=== PATIENT | female | born 2000 ===

== ENCOUNTER 2021-02-02 09:04 | Outpatient (CLI) | payer OTHER | END 2021-02-02 10:08 | disposition home or self-care (01) | LOC: PRENATAL 09:04 | PROVIDERS: ATTEND Obstetrics & Gynecology Maternal & Fetal Medicine | DX: O35.0XX1 Maternal care for (suspected) central nervous system malformation in fetus, fetus 1 (principal); O35.3XX1 Maternal care for (suspected) damage to fetus from viral disease in mother, fetus 1; O98.512 Other viral diseases complicating pregnancy, second trimester; Z36.89 Encounter for other specified antenatal screening; Z3A.25 25 weeks gestation of pregnancy ==

== ENCOUNTER 2021-03-29 12:44 | Inpatient (IN) | payer OTHER ==
[~2021-03-29] VITALS: Ht 160 cm; Wt 2.3 kg
[2021-04-01] MEDS ORDERED: FUSION PLUS CA1 EACH PO (13:41)
[2021-04-01] MEDS ORDERED: IBU800 MG PO (13:41)
[2021-04-01] MEDS ORDERED: SURFAK240 M1 PO (13:41)
== END 2021-04-01 14:07 | disposition home or self-care (01) | DRG 788 ==
LOC: LDR 12:44 → OB/GYN 20:37
PROVIDERS: ADMIT Obstetrics & Gynecology; ATTEND Obstetrics & Gynecology
PROC: BY4FZZZ Ultrasonography of Third Trimester, Single Fetus (ICD-10-PCS; 2021-03-29)
PROC: 4A1HXCZ Monitoring of Products of Conception, Cardiac Rate, External Approach (ICD-10-PCS; 2021-03-29)
PROC: 10D00Z1 Extraction of Products of Conception, Low, Open Approach (ICD-10-PCS; principal; 2021-03-29 18:30)
DX: O64.1XX0 Obstructed labor due to breech presentation, not applicable or unspecified (principal); O99.824 Streptococcus B carrier state complicating childbirth; O82 Encounter for cesarean delivery without indication; Z3A.35 35 weeks gestation of pregnancy; Z37.0 Single live birth; Z20.822 Contact with and (suspected) exposure to COVID-19

== ENCOUNTER 2021-04-05 09:00 | Outpatient (CLI) | payer OTHER ==
[~2021-04-05 09:00] MED LIST: FUSION PLUS CA1 EACH PO; IBU800 MG PO; SURFAK240 M1 PO
== END 2021-04-05 09:30 | disposition home or self-care (01) ==
LOC: PPH VACUNA 09:00
PROVIDERS: ATTEND Emergency Medicine Pediatric Emergency Medicine
DX: Z23 Encounter for immunization (principal)

== ENCOUNTER 2021-04-26 08:40 | Outpatient (CLI) | payer OTHER | END 2021-04-26 09:10 | disposition home or self-care (01) | LOC: PPH VACUNA 08:40 | PROVIDERS: ATTEND Emergency Medicine Pediatric Emergency Medicine | DX: Z23 Encounter for immunization (principal) ==